=== PATIENT | female | born 1990 | race Caucasian/White ===

== ENCOUNTER 2016-09-09 20:09 | Inpatient (IN) | payer OTHER ==
[~2016-09-09] VITALS: Ht 157.5 cm; Wt 81.0 kg
[2016-09-09 20:12] VITALS: Ht 157.5 cm; Wt 81.0 kg
[2016-09-09] MEDS ORDERED: PRENAT PO (20:17)
[2016-09-09] MEDS ORDERED: LIDOCAINE 1% (MPF) 30 ML INJ ONE (20:28)
[2016-09-09] MEDS ORDERED: LACTATED RINGER'S 1,000 ML IV SCH (20:28)
[2016-09-09 20:30] VITALS: BP 139/93; PULSE 93; RESP 22
[2016-09-09] MEDS ORDERED: MISOPROSTOL 200 MCG TAB PR PRN ×2 (20:30→21:30)
[2016-09-09] MEDS ORDERED: CARBOPROST 250 MCG INJ IM PRN ×2 (20:30→21:30)
[2016-09-09] MEDS ORDERED: BUTORPHANOL 2 MG INJ IV PRN (20:30)
[2016-09-09] MEDS ORDERED: METHYLERGONOVINE 0.2 MG INJ IM PRN (20:30)
[2016-09-09] MEDS ORDERED: OXYTOCIN 30 UNITS/LR 500 ML IV PRN ×2 (20:30→21:30)
[2016-09-09] MEDS ORDERED: OXYTOCIN 30 UNITS/LR 500 ML IV SCH ×2 (20:30)
[2016-09-09] MEDS ORDERED: LIDOCAINE 1% (MPF) 30 ML INJ INJ PRN (20:30)
[2016-09-09] MEDS ORDERED: ACETAMINOPHEN/CODEINE #3 TAB PO PRN ×3 (20:30→21:30)
[2016-09-09 20:48] LABS: ADD SCAN DIFF NO
[2016-09-09 20:51] LABS: BASOPHILS % 0.3 % (0.0-2.0); EOSINOPHILS % 0.4 % (0.0-7.0); HEMATOCRIT 35.8 % (37.0-47.0); HEMOGLOBIN 11.5 g/dl (12.0-16.0); LYMPHOCYTES # 2.4 10^3/ul (0.8-2.9); MEAN CORPUSCULAR HEMOGLOBIN 27.1 pg (29.0-33.0); MEAN CORPUSCULAR HGB CONC 32.1 g/dl (32.0-37.0); MEAN CORPUSCULAR VOLUME 84.4 fl (82.0-101.0); MEAN PLATELET VOLUME 9.8 fl (7.4-10.4); MONOCYTE # 0.7 10^3/ul (0.3-0.9); MONOCYTES % 7.5 % (0.0-11.0); NEUTROPHIL # 5.7 10^3/ul (1.6-7.5); NEUTROPHILS % 64.1 % (39.0-77.0); PLATELET COUNT 374 10^3/UL (140-415); RED BLOOD COUNT 4.24 10^6/ul (4.20-5.40); RED CELL DISTRIBUTION WIDTH 14.2 % (11.5-14.5); WHITE BLOOD COUNT 8.9 10^3/ul (4.8-10.8)
[2016-09-09 21:00] LABS: INR 0.86; PROTIME 11.7 Sec (12.2-14.2); PT RATIO 0.9
[2016-09-09 21:01] LABS: PARTIAL THROMBOPLASTIN TIME 27.4 Sec (25.0-35.0)
[2016-09-09] MEDS ORDERED: LACTATED RINGER'S 1,000 ML IV* SCH (21:03)
--- NOTE | 2016-09-09 21:07 | HP ---
Date/Time of Note Date/Time of Note DATE: 09/09/16 TIME: 21:05 OB - History Hx of Present Free Text/Dictation 26 YO with IUP at 38 weeks with EDC 09/19/2016 reported to L&D in active labor and 9 cm dilated Care: Good Care Ultrasounds: Normal mid trimester US Obstetrical Complications: None Medical Complications: Other (anemia) Past Family/Social History * Past Medical, Surgical, Family and Obstetric Histories reviewed from chart. OB Admission Exam Vital Signs Vital Signs Vital Signs Date Time Temp Pulse Resp B/P Pulse Ox O2 Delivery O2 Flow Rate FiO2 09/09/16 20:30 97.9 93 22 139/93 Room Air Physical Exam HEENT: WNL Heart: Rhythm Normal Lungs: Clear, Equal Abdomen: WNL Extremities: Normal Reflexes: Normal Cervical Dilatation: 10cm Effacement: 100% Station: 0 Membranes: Intact Amniotic Fluid: Clear Last 72 hours Lab Results CBC & BMP 09/09/16 20:30 OB Assessment/Plan Plan: Expectant Management YOLIE SERRANO MD Sep 09, 2016 21:07
--- NOTE | 2016-09-09 21:10 | LDN ---
Date/Time of Note Date/Time of Note DATE: 09/09/16 TIME: 21:07 Delivery Summary 26 YO with IUP at 38 weeks with EDC 09/19/2016 reported to L&D in active labor and 9 cm dilated. she quickly progressed to 10 cm. AROM: clear fluid. s/p of viable female with APGARS 9/9 over intact perineum. placenta delivered intact and spontaneously and EBL 300. Placenta Delivered: Spontaneously Meconium: none Perineum intact?: Yes Anesthesia type: None Sponge & Needle done & correct: Yes All needle counts correct: Yes Any foreign bodies felt in the: No Problems: Delivery Information Sex Sex: female Apgars 1 Minute: 9 5 Minute: 9 Suctioning Nose & mouth suctioned at leon: No Delee suction performed: No Umbilical Cord Umbilical cord with: 3 Vessels Cord presentations: no nuchal cord Cord Blood was obtained: Yes Mother & Baby Disposition Disposition Mom & Baby to Maternity; Good: Yes Baby to NICU: No YOLIE SERRANO MD Sep 09, 2016 21:10
[2016-09-09 21:11] LABS: ALBUMIN 3.4 g/dl (3.3-4.9)
[2016-09-09 21:12] LABS: CHLORIDE 104 mmol/L (97-110); POTASSIUM 4.2 mmol/L (3.5-5.1); SODIUM 137 mmol/L (135-144)
[2016-09-09 21:14] LABS: ALBUMIN/GLOBULIN RATIO 0.94; ALKALINE PHOSPHATASE 304 IU/L (42-121); ANION GAP 16 (8-16); ASPARTATE AMINO TRANSFERASE 37 IU/L (15-46); BILIRUBIN,INDIRECT 0.1 mg/dl (0-1.1); BILIRUBIN,TOTAL 0.1 mg/dl (0.2-1.3); CARBON DIOXIDE 21 mmol/L (21-31); CREATININE 0.52 mg/dl (0.44-1.00)
[2016-09-09 21:15] LABS: ALANINE AMINOTRANSFERASE 30 IU/L (13-69); BLOOD UREA NITROGEN 14 mg/dl (7-20); CALCIUM 9.3 mg/dl (8.4-10.2); GLUCOSE 73 mg/dl (70-220)
[2016-09-09] MEDS ORDERED: DIBUCAINE 1% 30 GM OINT PR PRN (21:30)
[2016-09-09] MEDS ORDERED: SENNA/DOCUSATE NA (8.6MG/50MG) TAB PO PRN (21:30)
[2016-09-09] MEDS ORDERED: DIPHENHYDRAMINE 25 MG CAP PO PRN (21:30)
[2016-09-09] MEDS ORDERED: WITCH HAZEL/GLYCERIN PAD PR PRN (21:30)
[2016-09-09] MEDS ORDERED: BENZOCAINE 20% 56 ML SPRAY TOP PRN (21:30)
[2016-09-09] MEDS ORDERED: MAGNESIUM HYDROXIDE 30ML CUP PO PRN (21:30)
[2016-09-09] MEDS ORDERED: ONDANSETRON 4 MG INJ IV PRN (21:30)
[2016-09-09] MEDS ORDERED: NA PHOSPHATE/BIPHOS 133 ML ENEMA PR PRN (21:30)
[2016-09-09] MEDS ORDERED: LANOLIN 7 GM TUBE TOP PRN (21:30)
[2016-09-09] MEDS ORDERED: DIPHENHYDRAMINE 50 MG INJ IV PRN (21:30)
[2016-09-09] MEDS ORDERED: ONDANSETRON 4 MG TAB PO PRN (21:30)
[2016-09-09] MEDS: IBUPROFEN 600 MG TAB PO SCH ×2 (21:42→23:59)
[2016-09-09 22:45] VITALS: BP 134/89; PULSE 78; RESP 18
--- NOTE | 2016-09-09 23:13 | TRIAGE ---
OB Triage Datetime Report Generated by CPN: 09/09/2016 23:13 Datetime: 09/09/2016 22:25 Stage of : Recovery Datetime: 09/09/2016 22:10 Stage of : Recovery Datetime: 09/09/2016 22:01 Stage of : Recovery Pain Assessment Pain Scale: 6 Pain Presence: Intermittent Pain Type: Cramping Pain Location: Abdomen Pain Goal: 2 Pain Relief Measures: Comfort Measures Datetime: 09/09/2016 21:45 Stage of : Recovery Pain Assessment Pain Scale: 6 Pain Presence: Intermittent Pain Type: Cramping Pain Location: Abdomen Pain Goal: 2 Pain Relief Measures: Comfort Measures Datetime: 09/09/2016 21:42 Stage of : Recovery Pain Assessment Pain Scale: 6 Pain Presence: Intermittent Pain Type: Cramping Pain Location: Abdomen Pain Goal: 2 Pain Relief Measures: Pain Medication Given; Comfort Measures Pain Assessment Comments: Motrin 600mg PO given for pain. Datetime: 09/09/2016 21:29 Stage of : Recovery Pain Assessment Pain Scale: 6 Pain Presence: Intermittent Pain Type: Cramping Pain Location: Abdomen Pain Goal: 2 Pain Relief Measures: Comfort Measures Datetime: 09/09/2016 21:16 Stage of : Recovery Pain Assessment Pain Scale: 6 Pain Presence: Intermittent Pain Type: Cramping Pain Location: Abdomen Pain Goal: 2 Pain Relief Measures: Comfort Measures Datetime: 09/09/2016 21:01 Stage of : Recovery Temperature Route: Oral Pain Assessment Pain Scale: 6 Pain Presence: Intermittent Pain Type: Cramping Pain Location: Abdomen Pain Goal: 2 Pain Relief Measures: Comfort Measures Datetime: 09/09/2016 20:50 Stage of : Labor Labor Evaluation Frequency: 2-3 Monitor Mode: External Duration (sec)2399: 50-70 Pattern: Normal: <= 5 Contractions in 10 Minutes Resting Tone [place]: Relaxed Monitor Mode: External US Variability: Moderate 6-25 bpm Comments: unable to determine baseline, not enough strip Pain Assessment Pain Scale: 10 Pain Presence: Intermittent Pain Type: Contraction Pain Location: Abdomen; Back; Perineum Pain Relief Measures: Comfort Measures Datetime: 09/09/2016 20:47 Monitor Mode: External Contraction Comments: new toco placed Contraction Comments: TOCO CHANGED Datetime: 09/09/2016 20:46 Monitor Mode: External US Datetime: 09/09/2016 20:44 Stage of : Labor Labor Evaluation Frequency: 1-3 Monitor Mode: Palpation Duration (sec)2399: 50-70 Pattern: Normal: <= 5 Contractions in 10 Minutes Resting Tone [place]: Relaxed Heart Rate FHR Baseline Rate: 155 Monitor Mode: External US Variability: Moderate 6-25 bpm Accelerations: 15X15 Decelerations: None Category: Category I Pain Assessment Pain Scale: 10 Pain Presence: Intermittent Pain Type: Contraction Pain Location: Abdomen; Back; Perineum Pain Goal: 2 Pain Relief Measures: Comfort Measures Datetime: 09/09/2016 20:43 Membrane Status: Ruptured Membranes Rupture Method: Artificial Amniotic Fluid Color: Clear Amniotic Fluid Amount: Moderate Amniotic Fluid Odor: None Datetime: 09/09/2016 20:40 Monitor Mode: External Datetime: 09/09/2016 20:36 Effacement (%): 100 Station: -3 Datetime: 09/09/2016 20:35 Assessment Type: Admission Assessment Vaginal Bleeding: None Maternal Assessment Level of Consciousness: Fully Conscious DTR's/Clonus: DTRs 2+; No Clonus Headache: Denies Blurred Vision: No Respiratory Effort: Unlabored; Regular Rhythm; Equal Expansion Breath Sounds, Left: Clear and Equal Breath Sounds, Right: Clear and Equal Nausea/Vomiting: Denies RUQ Epigastric Pain: Denies Lower Extremities Edema: None Degree: None Upper Extremities Edema: None Degree: None Facial Edema: None Fall Risk Assessment History of Falling: (0) No Secondary Diagnosis: (0) No Ambulatory Aid: (0) Bedrest/Nurse Assist IV Therapy: (20) Yes Gait: (0) Normal/Bedrest/Immobile Mental Status: (0) Oriented to Own Ability Fall Score: 20 Fall Risk Score Definition: No Risk: No action required Pain Assessment Pain Scale: 10 Pain Presence: Intermittent Pain Type: Contraction Pain Location: Abdomen; Back; Perineum Pain Goal: 2 Vaginal Exam Dilatation (cms): 9.0 Membrane Status: Intact Datetime: 09/09/2016 20:32 Stage of : Labor Monitor Mode: External Monitor Mode: External US Datetime: 09/09/2016 20:30 Time of Arrival: 09/09/2016 20:30 EGA: 38.4 Arrived By: Wheelchair Arrived From: Other Unit in Hospital Membrane Status: Intact Datetime: 09/09/2016 20:27 Stage of : OB Triage Datetime: 09/09/2016 20:23 Vaginal Exam Dilatation (cms): 9.0 Effacement (%): 90 Station: -3 Exam By: A ALBERTO RN Membrane Status: Bulging Datetime: 09/09/2016 20:22 Monitor Mode: External Quality: Moderate Pattern: Normal: <= 5 Contractions in 10 Minutes Resting Tone [place]: Relaxed Contraction Comments: PALPATED Q 2MIN Heart Rate FHR Baseline Rate: 145 Monitor Mode: External US FHR Baseline Changes: No Baseline Change Variability: Moderate 6-25 bpm Accelerations: 15X15 Decelerations: None Category: Category I Datetime: 09/09/2016 20:14 Time of Arrival: 09/09/2016 20:05 EGA: 38.4 Arrived By: Wheelchair Arrived From: Home Movement: Present Contractions: Irregular Time Contractions Began: 09/09/2016 17:30 Rupture of Membranes: Denies Vaginal Bleeding: Scant Vaginal Discharge: Denies Recent Sexual Intercouse: Denies Abdominal Trauma: Not Applicable Patient Complaints: None Time Provider Notified: 09/09/2016 20:27 Provider Notified: derrick Initial Plan: EFM, ASSESSMENT, CALL MD FOR ORDERS Datetime: 09/09/2016 20:13 Membranes Ruptured Date/Time: 09/09/2016 20:43 Membranes Rupture Method: Artificial Amniotic Fluid Color: Clear Amniotic Fluid Odor: None Presentation 'A': Cephalic
[2016-09-10] VITALS: BP 120/72; PULSE 77; RESP 18
[2016-09-10 04:00] VITALS: BP 116/67; PULSE 80; RESP 18
[2016-09-10] MEDS: IBUPROFEN 600 MG TAB PO SCH ×3 (05:35→17:55)
[2016-09-10 07:36] LABS: ADD SCAN DIFF NO
[2016-09-10 07:40] VITALS: BP 115/77; PULSE 71; RESP 18
[2016-09-10 07:43] LABS: BASOPHILS % 0.2 % (0.0-2.0); EOSINOPHILS # 0.1 10^3/ul (0.0-0.5); EOSINOPHILS % 0.4 % (0.0-7.0); HEMATOCRIT 29.9 % (37.0-47.0); HEMOGLOBIN 9.5 g/dl (12.0-16.0); LYMPHOCYTES # 2.9 10^3/ul (0.8-2.9); MEAN CORPUSCULAR HGB CONC 31.8 g/dl (32.0-37.0); MEAN CORPUSCULAR VOLUME 84.9 fl (82.0-101.0); MEAN PLATELET VOLUME 10.1 fl (7.4-10.4); MONOCYTE # 1.1 10^3/ul (0.3-0.9); MONOCYTES % 9.1 % (0.0-11.0); NEUTROPHIL # 8.3 10^3/ul (1.6-7.5); NEUTROPHILS % 66.8 % (39.0-77.0); PLATELET COUNT 282 10^3/UL (140-415); RED BLOOD COUNT 3.52 10^6/ul (4.20-5.40); RED CELL DISTRIBUTION WIDTH 14.5 % (11.5-14.5); WHITE BLOOD COUNT 12.5 10^3/ul (4.8-10.8)
[2016-09-10] MEDS: SENNA/DOCUSATE NA (8.6MG/50MG) TAB PO SCH ×2 (09:02→21:00)
[2016-09-10 15:30] VITALS: BP 112/77; PULSE 61; RESP 19
[2016-09-10 19:30] VITALS: BP 126/76; PULSE 75; RESP 19
[2016-09-11 04:00] VITALS: BP 130/82; PULSE 74; RESP 19
[2016-09-11] MEDS: IBUPROFEN 600 MG TAB PO SCH ×3 (06:00→12:00)
[2016-09-11 08:50] VITALS: BP 123/85; PULSE 83; RESP 20
[2016-09-11] MEDS ORDERED: DIPHTH/TET/ACEL PERTUSS (ADULT) 0.5 ML VIAL IM* ONE (09:00)
[2016-09-11] MEDS: SENNA/DOCUSATE NA (8.6MG/50MG) TAB PO SCH (09:00)
[2016-09-11] MEDS ORDERED: VARICELLA VACCINE LIVE/PF 1,350 UNIT/0.5 ML ML SC* ONE (09:00)
[2016-09-11] MEDS ORDERED: MEASLES,MUMPS,RUBELLA VACCINE INJ SC* ONE (09:00)
--- NOTE | 2016-09-11 12:54 | DS ---
Date/Time of Note Date/Time of Note DATE: 09/11/16 TIME: 12:52 Obstetrical Discharge Record Final Diagnosis Final Diagnosis: Term delivered Vaginal Delivery Obstetrical Delivery: Spontaneous Condition on Discharge Physical Assessment Last Vitals: Post day Patient is doing well, Ambulatory She is afebrile Abdomen is soft , Fundus is firm Moderate amount of lochia Breasts are soft, Nipples are intact No calf tenderness Current Medications Medications (Trade) Dose Ordered Sig/Shakira Route PRN Reason Start Time Stop Time Status Last Admin Dose Admin Lidocaine 30 ml 30 ml STK-MED ONCE .ROUTE 09/09/16 20:28 09/09/16 20:29 DC Lactated Ringer's (Lr) 1,000 ml @ 125 mls/hr Q8H IV 09/09/16 20:28 09/11/16 09:11 DC 09/09/16 21:08 Butorphanol Tartrate (Stadol) 2 mg Q2H PRN IV PAIN 09/09/16 20:30 Lidocaine 30 ml 30 ml ONCE PRN INJ EPISIOTOMY/TEARING 09/09/16 20:30 Oxytocin/Lactated Ringer's 500 ml @ 125 mls/hr ONCE -MAY REPEAT X1 IV 09/09/16 20:30 09/09/16 21:08 Oxytocin/Lactated Ringer's 500 ml @ 125 mls/hr ONCE IV 09/09/16 20:30 09/09/16 21:28 Acetaminophen/ Codeine Phosphate 2 tab 2 tab ONCE PRN PO Moderate to Severe Pain (4-10) 09/09/16 20:30 Oxytocin/Lactated Ringer's 500 ml @ 0 mls/hr ONCE PRN IV For Hemorrhage Management 09/09/16 20:30 Methylergonovine Maleate (Methergine) 0.2 mg ONCE PRN IM VAGINAL BLEEDING 09/09/16 20:30 Carboprost Tromethamine (Hemabate) 250 mcg ONCE PRN IM VAGINAL BLEEDING 09/09/16 20:30 Misoprostol 1000 mcg 1,000 mcg ONCE PRN NC VAGINAL BLEEDING 09/09/16 20:30 09/09/16 21:09 Lactated Ringer's (Lr) 1,000 ml @ 125 mls/hr Q8H IV* 09/09/16 21:03 09/11/16 09:11 DC Ibuprofen (Motrin) 600 mg Q6 PO 09/09/16 21:30 09/10/16 17:55 Acetaminophen/ Codeine Phosphate (Tylenol No.3) 1 tab Q4H PRN PO PAIN LEVEL 1-5 09/09/16 21:30 Acetaminophen/ Codeine Phosphate (Tylenol No.3) 2 tab Q4H PRN PO PAIN LEVEL 6-10 09/09/16 21:30 Ondansetron HCl (Zofran Inj) 4 mg Q6H PRN IV NAUSEA AND/OR VOMITING 09/09/16 21:30 Ondansetron HCl (Zofran Tab) 4 mg Q6H PRN PO NAUSEA AND/OR VOMITING 09/09/16 21:30 Diphenhydramine HCl (Benadryl) 25 mg Q6H PRN PO PRURITUS 09/09/16 21:30 Diphenhydramine HCl (Benadryl) 25 mg Q6H PRN IV PRURITUS 09/09/16 21:30 Senna/Docusate Sodium (Senokot-S) 1 tab BID PO 09/10/16 09:00 09/10/16 09:02 Senna/Docusate Sodium (Senokot-S) 1 tab BID PRN PO CONSTIPATION 09/09/16 21:30 Magnesium Hydroxide (Milk Of Mag) 30 ml Q12H PRN PO CONSTIPATION 09/09/16 21:30 Sodium Biphosphate/ Sodium Phosphate (Fleet Enema) 133 ml DAILY PRN NC CONSTIPATION 09/09/16 21:30 Witch Maria T/ Glycerin (Tucks Pads) 1 pad BEDSIDE MEDICATION PRN NC HEMORRHOID/EPISIOTMY PAIN 09/09/16 21:30 09/09/16 23:59 Benzocaine (Dermoplast [place]) 1 spray BEDSIDE MEDICATION PRN TOP HEMORRHOID/EPISIOTMY PAIN 09/09/16 21:30 09/09/16 23:59 Dibucaine (Nupercainal) 1 applic BEDSIDE MEDICATION PRN NC HEMORRHOID/EPISIOTMY PAIN 09/09/16 21:30 Lanolin ([id number]) 1 applic BEDSIDE MEDICATION PRN TOP BEDSIDE FOR LARISSA TO NIPPLES 09/09/16 21:30 09/09/16 23:59 Measles/Mumps/ Rubella Vaccine Live (Mmr Ii Vaccine) 0.5 ml ONCE ONCE SC* 09/11/16 09:00 2/28/17 09:01 DC Diphtheria/ Tetanus/Acell Pertussis (Adacel) 0.5 ml ONCE ONCE IM* 09/11/16 09:00 09/11/16 09:01 DC Varicella Virus Vaccine Live 1350 unit 1,350 unit ONCE ONCE SC* 09/11/16 09:00 09/11/16 09:01 DC Oxytocin/Lactated Ringer's 500 ml @ 0 mls/hr ONCE PRN IV For Hemorrhage Management 09/09/16 21:30 Carboprost Tromethamine (Hemabate) 250 mcg ONCE PRN IM VAGINAL BLEEDING 09/09/16 21:30 Misoprostol (Cytotec) 1,000 mcg ONCE PRN NC VAGINAL BLEEDING 09/09/16 21:30 . Breast feeding the new born. Voiding: Yes Bowel Movement: Yes Fundus: Firm Calf Tenderness: Yes Patient Condition: Good ROHITH SANCHEZ MD Sep 11, 2016 12:54
== END 2016-09-11 13:20 | disposition home or self-care (01) | DRG 775 ==
LOC: OBT 20:09 → L-D 20:11 → OBT 20:27 → L-D 20:27 → PP1 22:42
PROVIDERS: ADMIT Specialist; ATTEND Specialist
PROC: 10E0XZZ Delivery of Products of Conception, External Approach (ICD-10-PCS; principal; 2016-09-09)
DX: O80 Encounter for full-term uncomplicated delivery (principal); Z37.0 Single live birth; Z3A.38 38 weeks gestation of pregnancy
CPT/HCPCS: 80053; 84560; 85025; 85384; 85610; 85730; 86592; 86900; 86901; 87340; 90715; 90716; G0463; J2590; J7120